=== PATIENT | female | born 1960 | race Caucasian/White ===

== ENCOUNTER 2016-10-08 11:38 | Day surgery (SDC) | END 2016-10-08 18:20 | disposition home or self-care (01) | DX: M75.122 Complete rotator cuff tear or rupture of left shoulder, not specified as traumatic (principal); J44.9 Chronic obstructive pulmonary disease, unspecified; I73.9 Peripheral vascular disease, unspecified; E78.5 Hyperlipidemia, unspecified; E11.9 Type 2 diabetes mellitus without complications | CPT/HCPCS: 23420; J0690; J1170; J2250; J3010; Z7512; Z7610 ==